=== PATIENT | male | born 2000 | race Caucasian/White ===

== ENCOUNTER 2024-12-25 18:16 | Emergency (ER) | payer OTHER, SELFPAY ==
--- NOTE | ~2024-12-25 | XR_ITS ---
EXAMINATION: XR chest 2V Exam Date/Time: 12/25/2024 18:40 CDT HISTORY: chest pain Comparison: None. RESULT: Lines, tubes, and devices: Small foci of radiopaque debris over the midline and left upper chest. Lungs and pleura: Clear. Cardiomediastinal silhouette: Normal. Other: No acute osseous or upper abdominal finding. IMPRESSION: No acute cardiopulmonary process. Reviewed, dictated and finalized at location K.
--- NOTE | 2024-12-25 18:18 | ECG_ITS ---
Test Date: 2024-12-25 18:26:01 Measurements Intervals [place] Rate: 79 P: 46 ND: 136 QRS: 78 QRSD: 92 T: 71 QT: 376 QTc: 433 Interpretive Statements SINUS RHYTHM MINIMAL Q WAVES- ANTEROLAT/INF LEADS BORDERLINE ECG No previous ECG available for comparison Electronically Signed On 12-25-2024 19:11:56 CDT by Shawn Cunningham D.O.
--- OUTSIDE RECORDS SUMMARY | 2024-12-25 18:18 | XMS_ITS | Clinical Summary ---
Author Organization [facility] Address [address] [place] [address] Care Team Providers Care Lumber Handler Name Role Phone Kathia Moreno MD Primary Care Provider + Allergies No known active allergies Medications No known medications Active Problems Problem Noted Date Diagnosed Date Pectus carinatum 09/26/2016 Tinea capitis 01/23/2012 Skin callus 01/23/2012 Social History Tobacco Use Types Packs/Day Years Used Date Smoking Tobacco: Never Personal Safety Answer Date Recorded Have you ever been in or are you currently in a harmful physical or emotional relationship or is someone making you feel afraid or unsafe? 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 Gender Identity Not on file Sexual Orientation Not on file Obstetrics History Last Filed Vital Signs Vital Sign Reading Time Taken Comments Blood Pressure 147/90 11/21/2023 6:51 PM SLAB WORKER Pulse 76 11/21/2023 6:51 PM SLAB WORKER Temperature 36.4 C (97.5 F) 11/21/2023 6:51 PM SLAB WORKER Respiratory Rate 16 11/21/2023 6:51 PM SLAB WORKER Oxygen Saturation 100% 11/21/2023 6:51 PM SLAB WORKER Inhaled Oxygen Concentration - - Weight 64.2 kg (141 lb 8.6 oz) 11/21/2023 6:51 P M SLAB WORKER Height 180.3 cm (5' 11 ) 11/21/2023 6:51 PM SLAB WORKER Body Mass Index 19.74 11/21/2023 6:51 PM SLAB WORKER Plan of Treatment Health Maintenance Due Date Last Done Comments Depression Screening 2002 Hepatitis C Screening 2002 Meningococcal B Vaccine (1 o f 2 - Standard) 2018 Regular Well Visit/Exam 18-64 2020 Influenza Vaccine (#1) 2024 5, 06/04/2014, 08/06/2003, Additional history exists DTaP/Tdap/Td Vaccine (8 - Td or Tdap) 11/27/2031 11/26/2021, 06/04/2014, 05/09/2007, Additional history exists Hepatitis B Screening Completed 06/10/2003 , 2002, 2002, Additional history exists Pneumococcal vaccine <65 Completed 003, 2002, 2002, Additional history exists Varicella Vaccines Completed 05/09/2007, 04/15/2004 HPV Vaccines Completed 05/09/2016, 09/2014, 06/04/2014 Insurance WORKERS COMPENSATION GENERIC COMPENSATION [facility] CHOICE PLUS Care Teams Lumber Handler Relationship Specialty Start Date End Date Kathia Moreno MD [address] [place] [address] PCP - General 01/23/17
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
--- OUTSIDE RECORDS SUMMARY | 2024-12-25 18:18 | XMS_ITS ---
Author Organization [facility] [employer] [facility] Address [address] [facility] [address] [place] [address] Care Team Providers Care Photographic Colorist Name Role Phone Carye Marquis Primary Care Provider Erica vailaBozena Green Unavailable [phone] REASON FOR VISIT Appointment Social History Sex Assigned At : Social History Observation Description Sex Assigned At Male Encounters Encounter Location Date Provider Diagnosis [facility] [employer] [facility] [address] [facility] [address] [place] [address] 12/10/2024 Bozena Willis Plan Of Treatment Next Appt Details Provider Name:Boznea caba, 03/06/2025 04:30:00 PM, [address], [facility] [address], [place], [address], Progress Notes * ANGELIKA BOWERDOB: (24 yo M)Acc No.[id number]:12/10/2024 Patient: ANGELIKA SANTIAGO :2000 A ge:24 Y S ex:Male Address:[facility] [place], [address] * true * Date: Generated for Noreen joel/Bessie/eTransmitting on: 0 12/25/2024 06:18 PM CDT
--- OUTSIDE RECORDS SUMMARY | 2024-12-25 18:18 | XMS_ITS | Referral Summary ---
Author Organization [facility] Address [address] [place] [address] Care Team Providers Care Industrial Ecologist Name Role Phone Kathia Moreno MD Primary [...] on file Legal Sex Male 4:15 AM [employer] Gender Identity Not on file Sexual Orientation Not on file Last Filed Vital Signs Vital Sign Reading Time Taken Comments Blood Pressure 147/90 11/21/2023 6:51 PM [employer] Pulse 76 11/21/2023 6:51 PM [employer] Temperature 36.4 C (97.5 F) 11/21/2023 6:51 PM [employer] Respiratory Rate 16 11/21/2023 6:51 PM [employer] Oxygen Saturation 100% 11/21/2023 6:51 PM [employer] Inhaled Oxygen Concentration - - Weight 64.2 kg (141 lb 8.6 oz) 11/21/2023 6:51 P M [employer] Height 180.3 cm (5' 11 ) 11/21/2023 6:51 PM [employer] Body Mass Index 19.74 11/21/2023 6:51 PM [employer] Plan of Treatment Not on file Insurance WORKERS COMPENSATION GENERIC COMPENSATION [facility] CHOICE [facility] H[facility]/PPO Address: [place] [address] Care Teams Industrial Ecologist Relationship Specialty Start Date End Date Kathia Moreno MD [address] [place] [address] PCP - General 01/23/17
--- OUTSIDE RECORDS SUMMARY | 2024-12-25 18:18 | XMS_ITS ---
Author Organization [facility] Address [address] [facility] [address] [facility] [address] [place] [address] Care Team Providers Care Boat Laborer Name Role Phone Carey Marquis Primary Care Provider Erica juan cmanavBozena Green Unavailable [phone] REASON FOR VISIT Refill request Medications Medication SIG (Take, Route, Frequency, Duration) Notes Start Date End Date Status Amphetamine-Dextroamphet ER 15 MG 1 capsule in the morning Oral Once a day for 30 days 12/08/2024 Active Social History Sex Assigned At : Social History Observation Description Sex Assigned At Male Encounters Encounter Location Date Provider Diagnosis [facility] [employer] [facility] [place] [id number] [facility] [address] [place] [address] 12/07/2024 Bozena Willis Attention-deficit hyperactivity disorder, combined type F90.2 Assessments Encounter Date Diagnosis (ICD Code) Assessment Notes Treatment Notes Treatment Clinical Notes Section Notes 12/07/2024 Attention-deficit hyperactivity disorder, combined type (ICD-10 - F90.2) Plan Of Treatment Medication Medication Name Sig Start Date Stop Date Notes Amphetamine-Dextroamphet ER 15 MG 1 capsule in the morning Oral Once a day for 30 days 12/08/2024 Next Appt Details Provider Name:Bozena caba, 03/06/2025 04:30:00 PM, [address], [place], [address], Progress Notes * ANGELIKA BOWERDOB: (24 yo M)Acc No.[id number]:12/07/2024 Patient: ANGELIKA SANTIAGO LYUDMILA :2000 A ge:24 Y S ex:Male Address:[address] [place] [address] * Refills Refill Amphetamine-Dextroamphet ER Capsule Extended Release 24 Hour, 15 MG, Oral, 30, 1 capsule in the morning, Once a day, 30 days, Refills=0 * true * Date: Generated for Noreen joel/Bessie/Preciousitting on: 0 12/25/2024 06:18 PM CDT
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
[2024-12-25 18:23] VITALS: BP 156/97; PULSE 80; RESP 14; TEMP 36.4; O2SAT 100
[2024-12-25 18:29] VITALS: O2SAT 100
[2024-12-25 18:30] VITALS: PULSE 89
[2024-12-25] MEDS: ASPIRIN 81 MG CHEWABLE TABLET 324 MG PO (18:31)
[2024-12-25 18:47] LABS: Basophils Percent Auto 0.7 % (0.2-1.2); Eosinophils Absolute Auto 0.1 K/mm3 (0-0.3); Eosinophils Percent Auto 2.1 % (0-4.4); Hematocrit 41.1 % (42.0-52.0); Hemoglobin 14.2 g/dL (14.0-18.0); Immature Granulocyte Absolute 0.01 K/mm3 (0.00-0.031); Immature Granulocyte Percent A 0.2 % (0-0.5); Lymphocytes Absolute Auto 2.81 K/mm3 (0.9-3.2); Lymphocytes Percent Auto 48.4 % (18.3-44.2); Mean Corpuscular HGB Conc 34.5 g/dl (32-36); Mean Corpuscular Hemoglobin 30.1 pg (26-34); Mean Corpuscular Volume 87.3 fl (80-100); Monocytes Absolute Auto 0.5 K/mm3 (0.1-0.6); Monocytes Percent Auto 9.3 % (2.6-8.5); Neutrophils Absolute Auto 2.3 K/mm3 (1.3-6.7); Neutrophils Percent Auto 39.3 % (45.5-73.1); Platelet Count Result 277 k/mm3 (150-375); Red Blood Count 4.71 M/mm3 (4.6-6.20); Red Cell Distribution Width 11.9 % (11.5-14.5); White Blood Count 5.8 K/mm3 (4.5-10.0)
[2024-12-25 18:58] LABS: Alanine Aminotransferase 14 U/L (6-50); Albumin Level 4.8 g/dL (3.5-5.1); Alkaline Phosphatase 46 U/L (38-126); Anion Gap 9 mmol/L (4-12); Aspartate Amino Transferase 27 U/L (17-59); Bilirubin,Total 0.8 mg/dL (0.2-1.3); Blood Urea Nitrogen 12 mg/dL (9-20); Calcium 9.3 mg/dL (8.4-10.2); Carbon Dioxide 30 mmol/L (22-30); Chloride 101 mmol/L (98-107); Estimated CRCL calculation 88 ml/min; Estimated Glomerular Filt Rate > 60; Glucose 99 mg/dL (65-110); Lipase 63 U/L (23-300); Potassium 3.9 mmol/L (3.4-5.0); Sodium 140 mmol/L (137-145)
[2024-12-25 18:59] LABS: Partial Thromboplastin Time 28.3 Seconds (22.3-36.8)
[2024-12-25 19:00] LABS: INR 1.1; Prothrombin Time 14.7 Seconds (11.1-14.7)
[2024-12-25 19:10] LABS: Troponin I < 0.012 ng/mL (0.000-0.034)
--- OUTSIDE RECORDS SUMMARY | 2024-12-25 19:19 | XMS_ITS | Clinical Summary ---
Author Organization [facility] Address [address] [place] [address] Care Team Providers Care Airline Ticket Agent Name Role Phone Caty Lam MD Primary Care Provider [phone] Source Comments [facility],non-owned Affiliates and Associated Physician Practices is amultiple site organization consisting of ambulatory clinics and hospital sitesin [place], [place], [place] and [place]. This disclosure is being madepursuant to the Care Everywhere program and may not contain all information available regarding this patient. Last updated 18.[employer] [facility] Allergies No known active allergies Medications * [...] age to complete this topic Care Teams Airline Ticket Agent Relationship Specialty Start Date End Date Caty Lam MD [address] [facility] [address] [place] [address] [facility] - General 12/09/21
--- OUTSIDE RECORDS SUMMARY | 2024-12-25 19:19 | XMS_ITS | Clinical Summary ---
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 Gender Identity Not on file Sexual Orientation Not on file Obstetrics History Last Filed Vital Signs Vital Sign Reading Time Taken Comments Blood Pressure 147/90 11/21/2023 6:51 PM PRESS SUPERVISOR Pulse 76 11/21/2023 6:51 PM PRESS SUPERVISOR Temperature 36.4 C (97.5 F) 11/21/2023 6:51 PM PRESS SUPERVISOR Respiratory Rate 16 11/21/2023 6:51 PM PRESS SUPERVISOR Oxygen Saturation 100% 11/21/2023 6:51 PM PRESS SUPERVISOR Inhaled Oxygen Concentration - - Weight 64.2 kg (141 lb 8.6 oz) 11/21/2023 6:51 P M PRESS SUPERVISOR Height 180.3 cm (5' 11 ) 11/21/2023 6:51 PM PRESS SUPERVISOR Body Mass Index 19.74 11/21/2023 6:51 PM PRESS SUPERVISOR Plan of Treatment Health Maintenance Due Date [...] 09/2014, 06/04/2014 Insurance WORKERS COMPENSATION GENERIC COMPENSATION [facility] CHOICE PLUS Care Teams Manufacturing Manager Relationship Specialty Start Date End Date Kathia Moreno MD [address] [place] [address] PCP - General 01/23/17
--- OUTSIDE RECORDS SUMMARY | 2024-12-25 19:19 | XMS_ITS | Referral Summary ---
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 Gender Identity Not on file Sexual Orientation Not on file Last Filed Vital Signs Vital Sign Reading Time Taken Comments Blood Pressure 147/90 11/21/2023 6:51 PM CHIEF GROWTH OFFICER Pulse 76 11/21/2023 6:51 PM CHIEF GROWTH OFFICER Temperature 36.4 C (97.5 F) 11/21/2023 6:51 PM CHIEF GROWTH OFFICER Respiratory Rate 16 11/21/2023 6:51 PM CHIEF GROWTH OFFICER Oxygen Saturation 100% 11/21/2023 6:51 PM CHIEF GROWTH OFFICER Inhaled Oxygen Concentration - - Weight 64.2 kg (141 lb 8.6 oz) 11/21/2023 6:51 P M CHIEF GROWTH OFFICER Height 180.3 cm (5' 11 ) 11/21/2023 6:51 PM CHIEF GROWTH OFFICER Body Mass Index 19.74 11/21/2023 6:51 PM CHIEF GROWTH OFFICER Plan of Treatment Not on file Insurance WORKERS COMPENSATION GENERIC COMPENSATION [facility] CHOICE PLUS Care Teams Mason Helper Relationship Specialty Start Date End Date Kathia Moreno MD [address] [place] [address] PCP - General 01/23/17
--- NOTE | 2024-12-25 19:51 | ED_ITS ---
HPI - Chest Pain General Chief Complaint: Chest Pain Stated Complaint: chest pain Time Seen by Provider: 12/25/24 19:00 History of Present Illness HPI narrative: Patient is a 24-year-old male presents to the ER with complaints of chest palpitations. He reports he was sleeping last night and the palpitations woke him up. Patient reports as he was lying in bed he had another episode of palpitations accompanied by shortness of breath. He denies chest pain but endorses ?tightness. Patient also endorses left shoulder and left neck pain. He reports he has had episodes of dizziness lately along with left lower chest cramping. Patient reports he takes Adderall for ADD and drinks approximately 2 energy drinks per day. He also endorses history of high blood pressure and depression. Related Data Allergies Allergy/AdvReac Type Severity Reaction Status Date / Time No Known Allergies Allergy Mild Verified 12/25/24 18:16 Review of Systems 2 Review of Systems: All systems reviewed & are unremarkable except as noted in HPI and below Exam 2 Narrative: GENERAL: Well appearing, well-nourished, non-toxic, in no acute distress. HEAD: Normocephalic, atraumatic. NECK: Supple. No adenopathy, no masses. RESPIRATORY: Airway patent, respirations nonlabored. Clear to auscultation bilaterally, no rales, rhonchi, wheezing. CARDIOVASCULAR: Regular rate and rhythm without murmurs, rubs, or gallops. Peripheral pulses 2+ and equal bilaterally. ABDOMINAL: Soft, nontender, nondistended, no hepatosplenomegaly. Normoactive BS. MUSCULOSKELETAL: Moves all extremities. Strength/ROM intact without gross deformities. SKIN: Warm, dry, normal color. No rashes. NEURO: A&O X3. Speech clear. Cranial nerves II-XII intact. No ataxic movements. PSYCHIATRIC: Appropriate mood and affect. Normal interaction. Course Vital Signs Vital signs: Vital Signs Temperature 36.4 C 12/25/24 18:23 Pulse Rate 80 12/25/24 18:23 Respiratory Rate 14 12/25/24 18:23 Blood Pressure 156/97 H 12/25/24 18:23 Pulse Oximetry 100 12/25/24 18:23 Oxygen Delivery Room Air 12/25/24 18:23 Temperature 36.4 C 12/25/24 18:23 Pulse Rate 90 12/25/24 20:11 Respiratory Rate 20 12/25/24 20:11 Blood Pressure 147/53 H 12/25/24 20:11 Pulse Oximetry 100 12/25/24 20:11 Oxygen Delivery Room Air 12/25/24 18:29 MDM - Chest Pain MDM Narrative Medical decision making narrative: Patient is a 24-year-old male presents to the ER with complaints of chest palpitations. He reports he was sleeping last night and the palpitations woke him up. Patient reports as he was lying in bed he had another episode of palpitations accompanied by shortness of breath. He denies chest pain but endorses ?tightness. Patient also endorses left shoulder and left neck pain. He reports he has had episodes of dizziness lately along with left lower chest cramping. Patient reports he takes Adderall for ADD and drinks approximately 2 energy drinks per day. He also endorses history of high blood pressure and depression. Labs Ordered: CBC, CMP, troponin, INR, lipase, PTT, TSH Imaging Ordered: Chest x-ray Medications Ordered: Aspirin 324 mg p.o. Results: Patient's chest x-ray indicates no acute abnormalities. Diagnosis: Atypical chest pain, chest palpitations Risks: HEART score: low risk HEART Score for Major Cardiac Events from [email or web address] on 12/25/2024 All calculations should be rechecked by clinician prior to use RESULT SUMMARY: 0 points Low Score (0-3 points) Risk of MACE of 0.9-1.7%. INPUTS: History ?> 0 = Slightly suspicious EKG ?> 0 = Normal Age ?> 0 = <45 Risk factors ?> 0 = No known risk factors Initial troponin ?> 0 = <=Normal limit Patient Education/Shared MDM: Results of lab work and imaging shared with patient. Patient strongly advised to maintain hydration status upon discharge, decrease his caffeine intake, and follow-up with his PCP as soon as possible. He will not be discharged home with any new prescriptions. Strict return precautions provided. Patient verbalized understanding is in agreement with plan. Vital signs stable at time of discharge. All questions answered. Differential Diagnosis Differential diagnosis: Likely atypical chest pain, st elevation myocardial infarction, costochondritis and chest pain Lab Data Attestation: I reviewed the patient's lab results. 12/25/24 18:38 12/25/24 18:38 Labs: Lab Results 12/25/24 12/25/24 Range/Units 18:38 21:06 WBC 5.8 (4.5-10.0) K/mm3 RBC 4.71 (4.6-6.20) M/mm3 Hgb 14.2 (14.0-18.0) g/dL Hct 41.1 L (42.0-52.0) % MCV 87.3 (80-100) fl MCH 30.1 (26-34) pg MCHC 34.5 (32-36) g/dl RDW 11.9 (11.5-14.5) % Plt Count 277 (150-375) k/mm3 MPV 9.0 (7.4-10.4) fl Immature Gran % (Auto) 0.2 (0-0.5) % Neut % (Auto) 39.3 L (45.5-73.1) % Lymph % (Auto) 48.4 H (18.3-44.2) % Independence % (Auto) 9.3 H (2.6-8.5) % Eos % (Auto) 2.1 (0-4.4) % Baso % (Auto) 0.7 (0.2-1.2) % Lymph # (Auto) 2.81 (0.9-3.2) K/mm3 Independence # (Auto) 0.5 (0.1-0.6) K/mm3 Eos # (Auto) 0.1 (0-0.3) K/mm3 Baso # (Auto) 0.0 (0.0-0.1) K/mm3 Abs Immat Gran (auto) 0.01 (0.00-0.031) K/mm3 Absolute Neuts (auto) 2.3 (1.3-6.7) K/mm3 Absolute Nucleated RBC 0.000 (0.0-0.012) K/mm3 Nucleated RBC % 0.0 (0.0-0.2) % PT 14.7 (11.1-14.7) Seconds INR 1.1 APTT 28.3 (22.3-36.8) Seconds Sodium 140 (137-145) mmol/L Potassium 3.9 (3.4-5.0) mmol/L Chloride 101 (98-107) mmol/L Carbon Dioxide 30 (22-30) mmol/L Anion Gap 9 (4-12) mmol/L BUN 12 (9-20) mg/dL Creatinine 1.03 (0.7-1.3) mg/dL Estim Creat Clear Calc 88 ml/min Estimated GFR > 60 (59 - ) Glucose 99 (65-110) mg/dL Calcium 9.3 (8.4-10.2) mg/dL Total Bilirubin 0.8 (0.2-1.3) mg/dL AST 27 (17-59) U/L ALT 14 (6-50) U/L Alkaline Phosphatase 46 (38-126) U/L Troponin I < 0.012 Pending (0.000-0.034) ng/mL Total Protein 8.0 (6.3-8.2) g/dL Albumin 4.8 (3.5-5.1) g/dL Lipase 63 (23-300) U/L TSH (Reflex) 1.460 (0.465-4.68) uIU/mL Imaging Data Attestation: I personally reviewed and interpreted this imaging study as follows: Radiologist's impression: Impressions Chest X-Ray 12/25/24 18:47 IMPRESSION: No acute cardiopulmonary process. Discharge Plan Discharge Clinical Impression: Atypical chest pain, Caffeine abuse Patient Disposition: Home, Self-Care Condition: Stable Instructions: Antibiotic Form, Noncardiac Chest Pain (ED) Additional Instructions: Please return to the ER with any worsening symptoms. Follow-up with primary care provider as soon as possible. Please decrease caffeine intake. Patient Language: Congolese Follow-up/Referrals: Erickson Cesar MD [Physician] - (cardiology) Dionisio Sevilla MD [Physician] - (primary care) UNKNOWN,DOCTOR [Primary Care Provider] - Stand Alone Forms: Work/School Release IP Time of Disposition: 21:01
[2024-12-25 20:11] VITALS: BP 147/53; PULSE 90; RESP 20; O2SAT 100
[2024-12-25 21:43] VITALS: BP 141/85; PULSE 85; RESP 17; O2SAT 100
[2024-12-25 21:46] LABS: Troponin I < 0.012 ng/mL (0.000-0.034)
== END 2024-12-25 21:44 | disposition home or self-care (01) ==
PROVIDERS: Emergency Medicine; Emergency Provider Registered Nurse
DX: R07.89 Other chest pain (principal); F15.10 Other stimulant abuse, uncomplicated
CPT/HCPCS: 36415; 71046; 80053; 83690; 84443; 84484; 85025; 85610; 85730; 93005; 99284; A9270

== ENCOUNTER 2025-05-08 23:09 | Emergency (ER) | payer OTHER, SELFPAY ==
--- NOTE | ~2025-05-08 | CT_ITS ---
EXAMINATION: CT abdomen pelvis wo con DATE: 05/09/2025 02:23 INDICATION: Right lower quadrant abdominal pain extending to the testes TECHNIQUE: Computed tomography (CT) of the abdomen and pelvis was performed without intravenous contr ast. Automated exposure control and iterative reconstruction technique were employed. The dose-length product was 202.78 mGy-cm. COMPARISON: None FINDINGS: Lung bases are clear. Heart size is normal. No pericardial or pleural effusion. Liver, gallbladder, s pleen, pancreas, bilateral adrenal glands and kidneys are normal. No urolithiasis or hydronephrosis. There are couple phleboliths in the left hemipelvis. Bladder is normal. Bowels including the appendix are normal with no abnormal wall thickening or obstruction. No free intraperitoneal gas or fluid. No pathologically enlarged abdominal or pelvic lymphadenopathy. Bones are unremarkable. IMPRESSION: 1. No acute intra-abdominal/pelvic process. Reviewed, dictated and finalized at location A.
--- NOTE | ~2025-05-08 | US_ITS ---
EXAMINATION: US scrotum doppler DATE: 05/09/2025 00:58 INDICATION: Right testicular pain TECHNIQUE: Testicular sonogram utilizing grayscale and Doppler COMPARISON: None. FINDINGS: The right testis measures 4.8 x 1.8 x 2.7 cm. The left testis measures 4.9 x 2.2 x 2.9 cm. Symmetric normal grayscale appearance to both testes. There is normal vascular flow to both testes. The right e pididymis is normal with normal vascular flow. The left epididymis is normal with normal vascular tigre w. There is no varicocele or hydrocele. IMPRESSION: 1. Normal scrotal ultrasound. Reviewed, dictated and finalized at location A.
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
--- OUTSIDE RECORDS SUMMARY | 2025-05-08 23:11 | XMS_ITS | Clinical Summary ---
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 Gender Identity Not on file Sexual Orientation Not on file Obstetrics History Last Filed Vital Signs Vital Sign Reading Time Taken Comments Blood Pressure 147/90 11/21/2023 6:51 PM CLINICAL NURSE MANAGER Pulse 76 11/21/2023 6:51 PM CLINICAL NURSE MANAGER Temperature 36.4 C (97.5 F) 11/21/2023 6:51 PM CLINICAL NURSE MANAGER Respiratory Rate 16 11/21/2023 6:51 PM CLINICAL NURSE MANAGER Oxygen Saturation 100% 11/21/2023 6:51 PM CLINICAL NURSE MANAGER Inhaled Oxygen Concentration - - Weight 64.2 kg (141 lb 8.6 oz) 11/21/2023 6:51 P M CLINICAL NURSE MANAGER Height 180.3 cm (5' 11) 11/21/2023 6:51 PM CLINICAL NURSE MANAGER Body Mass Index 19.74 11/21/2023 6:51 PM CLINICAL NURSE MANAGER Plan of Treatment Health Maintenance Due Date Last Done Comments Depression Screening 2002 Hepatitis C Screening 2002 Meningococcal B Vaccine (1 o f 2 - Standard) 2018 Regular Well Visit/Exam 18-64 2020 Influenza Vaccine (#1) 2025 5, 06/04/2014, 08/06/2003, Additional history exists DTaP/Tdap/Td Vaccine (8 - Td or Tdap) 11/27/2031 11/26/2021, 06/04/2014, 05/09/2007, Additional history exists Hepatitis B Screening Completed 06/10/2003 , 2002, 2002, Additional history exists Pneumococcal vaccine <65 Completed 003, 2002, 2002, Additional history exists Varicella Vaccines Completed 05/09/2007, 04/15/2004 HPV Vaccines Completed 05/09/2016, 09/2014, 06/04/2014 Insurance WORKERS COMPENSATION GENERIC COMPENSATION [facility] CHOICE PLUS [facility] HMO/PPO Address: [facility] [address] [place] [address] Care Teams Insurance Account Manager Relationship Specialty Start Date End Date Kathia Moreno MD [address] [place] [address] PCP - General 01/23/17
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
[2025-05-08 23:14] VITALS: BP 141/97; PULSE 88; RESP 17; TEMP 36.9; O2SAT 98
--- NOTE | 2025-05-08 23:18 | ED.MALEGU ---
HPI - Male Genitourinary General Chief complaint: Urogenital-Male Stated complaint: testicular pain Time Seen by Provider: 05/08/25 23:11 History of Present Illness HPI Narrative: 24-year-old otherwise healthy male presenting with intermittent right side testicular pain for last 2 days. He states that it was a dull 3 of 10 ache for last 2 days and then for last 3 hours he had a sharp worsening pain. No associated symptoms such as nausea, vomiting, diarrhea, constipation. Pain radiates up his right groin. No back pain or flank pain. No change in his urinary or stool habits. No blood in his urine or stool. No concerns for STI. No swelling. No changes position. He has not had any history of surgeries or interventions in this area. Was otherwise in his normal state of health. No direct trauma or injury. Related Data Allergies Allergy/AdvReac Type Severity Reaction Status Date / Time No Known Allergies Allergy Mild Verified 05/08/25 23:19 Review of Systems Review of Systems: As reviewed above in HPI Exam Narrative: GENERAL: [Well-appearing, well-nourished, and in no acute distress.] HEAD: [Normocephalic, atraumatic.] EYES: [PERRLA and EOMI.] ENT: Nares clear, no rhinorrhea or epistaxis. Mucous membranes moist. NECK: Supple. CHEST: [Clear to auscultation. No respiratory distress.] HEART: [Regular rate and rhythm]. No murmur heard. [Normal peripheral pulses.] ABDOMEN: [Soft, nondistended], [nontender], [No rigidity or guarding] : Bilateral descended testicles, tenderness along the right testicular and epididymis without any inflammation on the external examination. Negative per and sign, positive cremasteric reflex bilaterally, no significant swelling. No penile pain or discharge. No inguinal lymphadenopathy noted. EXTREMITIES: Normal range of motion. [No edema.] SKIN: Warm, dry, no rash. NEURO: [No focal deficits]. Alert and oriented [x3.] PSYCH: [Normal mood and affect.] Course Vital Signs Vital signs: Vital Signs Temperature 36.9 C 05/08/25 23:14 Pulse Rate 88 05/08/25 23:14 Respiratory Rate 17 05/08/25 23:14 Blood Pressure 141/97 H 05/08/25 23:14 Pulse Oximetry 98 05/08/25 23:14 Oxygen Delivery Room Air 05/08/25 23:14 Temperature 36.9 C 05/08/25 23:14 Pulse Rate 80 05/09/25 02:09 Respiratory Rate 14 05/09/25 02:09 Blood Pressure 139/78 05/09/25 02:09 Pulse Oximetry 96 05/09/25 02:09 Oxygen Delivery Room Air 05/08/25 23:14 MDM - Male Genitourinary MDM Narrative Medical decision making narrative: 24-year-old otherwise healthy male presenting with intermittent right side testicular pain for last 2 days. He states that it was a dull 3 of 10 ache for last 2 days and then for last 3 hours he had a sharp worsening pain. No associated symptoms such as nausea, vomiting, diarrhea, constipation. Pain radiates up his right groin. No back pain or flank pain. No change in his urinary or stool habits. No blood in his urine or stool. No concerns for STI. No swelling. No changes position. He has not had any history of surgeries or interventions in this area. Was otherwise in his normal state of health. No direct trauma or injury. Exam shows bilateral descended testicles, tenderness along the right testicular and epididymis without any inflammation on the external examination. Negative per and sign, positive cremasteric reflex bilaterally, no significant swelling. No penile pain or discharge. No inguinal lymphadenopathy noted. Patient is hemodynamically stable. Symptoms consistent with potential intermittent torsion, epididymitis, orchitis, urinary tract infection, STD. Patient was given Toradol for analgesia, laboratory studies obtained an ultrasound of the scrotum obtained. Laboratory studies are all reassuring and negative for any acute abnormalities or infectious process. Ultrasound report by technologist shows some trace fluid otherwise no acute findings. Confirmed by radiology with no acute testicular findings and largely unremarkable ultrasound of the scrotum. CT scan was ordered this time given patient's pain value 8 for the potential sources such as right lower quadrant symptoms such as appendicitis. This was negative with normal appendix and no signs of inguinal hernia. No acute intra-abdominal or pelvic findings. We discussed the findings with the patient and plan for Urology follow-up if this is a persisting concern instructed to take ibuprofen 600 mg q.8 hours as needed. Patient comfortable the plan safe for discharge at this time with return precautions. Medical Records Attestation: I reviewed the patient's medical records. Lab Data Attestation: I reviewed the patient's lab results. 05/08/25 23:28 05/08/25 23:28 Labs: Lab Results 05/08/25 05/08/25 Range/Units 23:28 23:33 WBC 7.7 (4.5-10.0) K/mm3 RBC 4.59 L (4.6-6.20) M/mm3 Hgb 13.9 L (14.0-18.0) g/dL Hct 39.4 L (42.0-52.0) % MCV 85.8 (80-100) fl MCH 30.3 (26-34) pg MCHC 35.3 (32-36) g/dl RDW 12.3 (11.5-14.5) % Plt Count 253 (150-375) k/mm3 MPV 9.2 (7.4-10.4) fl Immature Gran % (Auto) 0.1 (0-0.5) % Neut % (Auto) 43.4 L (45.5-73.1) % Lymph % (Auto) 45.6 H (18.3-44.2) % Victoria % (Auto) 8.2 (2.6-8.5) % Eos % (Auto) 2.2 (0-4.4) % Baso % (Auto) 0.5 (0.2-1.2) % Lymph # (Auto) 3.50 H (0.9-3.2) K/mm3 Victoria # (Auto) 0.6 (0.1-0.6) K/mm3 Eos # (Auto) 0.2 (0-0.3) K/mm3 Baso # (Auto) 0.0 (0.0-0.1) K/mm3 Abs Immat Gran (auto) 0.01 (0.00-0.031) K/mm3 Absolute Neuts (auto) 3.3 (1.3-6.7) K/mm3 Absolute Nucleated RBC 0.000 (0.0-0.012) K/mm3 Nucleated RBC % 0.0 (0.0-0.2) % PT 14.4 (11.1-14.7) Seconds INR 1.1 APTT 28.9 (22.3-36.8) Seconds Sodium 139 (137-145) mmol/L Potassium 4.0 (3.4-5.0) mmol/L Chloride 104 (98-107) mmol/L Carbon Dioxide 24 (22-30) mmol/L Anion Gap 11 (4-12) mmol/L BUN 17 (9-20) mg/dL Creatinine 1.11 (0.7-1.3) mg/dL Estim Creat Clear Calc Not Reportable Estimated GFR > 60 (59 - ) Glucose 78 (65-110) mg/dL Calcium 9.3 (8.4-10.2) mg/dL Urine Color Yellow (Yellow) Urine Appearance Clear (Clear) Urine pH 6.0 (5.0-9.0) Ur Specific Marion 1.026 (1.001-1.035) Urine Protein Negative (Negative) mg/dL Urine Glucose (UA) Negative (Negative) mg/dL Urine Ketones Trace H (Negative) mg/dL Ur Blood (Man) Negative (Negative) Urine Nitrate Negative (Negative) Urine Bilirubin Negative (Negative) Urine Urobilinogen 1.0 (<2.0) mg/dL Leukocyte Esterase Rfl Negative (Negative) SVETLANA/UL C. trachomatis (PCR) Not detected (NOT DETECTE) N. gonorrhoeae (PCR) Not detected (NOT DETECTE) T. vaginalis (PCR) Not detected (NOT DETECTE) Imaging Data Attestation: I personally reviewed and interpreted this imaging study as follows: My impression: No acute abnormalities, trace hydro seen on right testicle per technologist's report Discharge Plan Discharge Clinical Impression: Hydrocele in adult Patient Disposition: Home Condition: Stable Instructions: Antibiotic Form, Testicle Pain (ED) Additional Instructions: Trace fluid seen around the right testicle but no signs of active infection. Your laboratory studies are all normal reassuring. CT scan was normal reassuring. Will refer you to a urologist to further evaluate you of this a persisting concern. Take the prescribed ibuprofen 600 mg every 8 hours for symptom control appear to be start developing fevers, worsening pain or new symptoms please return to the ER or your primary care provider/urology follow-up. Patient Language: Mongolian Prescriptions: New ibuprofen 600 mg tablet 600 mg PO TID PRN (Reason: pain) Qty: 20 0RF Follow-up/Referrals: Alexis Mason MD [Physician] - 1 Week (Right-sided testicular pain) UNKNOWN,DOCTOR [Primary Care Provider] - Time of Disposition: 04:56
[2025-05-08] MEDS: KETOROLAC 15 MG/ML VIAL (*BKC) IV PUSH (23:26)
[2025-05-08 23:35] VITALS: BP 133/86; PULSE 82; RESP 20; O2SAT 97
[2025-05-08 23:43] LABS: Add Urine Microscopic? NO; Appearance Urine Clear (Clear); Glucose Urine UA Negative (Negative); Leukocyte Esterase Ur Negative LEU/UL (Negative); Nitrate Urine Negative (Negative); Specific Grav Ur 1.026 (1.001-1.035)
[2025-05-08 23:43] LABS: Hematocrit 39.4 % (42.0-52.0); Hemoglobin 13.9 g/dL (14.0-18.0); Immature Granulocyte Percent A 0.1 % (0-0.5); Lymphocytes Absolute Auto 3.50 K/mm3 (0.9-3.2); Mean Corpuscular HGB Conc 35.3 g/dl (32-36); Mean Corpuscular Hemoglobin 30.3 pg (26-34); Mean Corpuscular Volume 85.8 fl (80-100); Nucleated Red Blood Cells Absolute Auto 0.000 K/mm3 (0.0-0.012); Nucleated Red Blood Cells Perc 0.0 % (0.0-0.2); Platelet Count Result 253 k/mm3 (150-375); Red Blood Count 4.59 M/mm3 (4.6-6.20); White Blood Count 7.7 K/mm3 (4.5-10.0)
[2025-05-08 23:50] LABS: Anion Gap 11 mmol/L (4-12); Blood Urea Nitrogen 17 mg/dL (9-20); Calcium 9.3 mg/dL (8.4-10.2); Carbon Dioxide 24 mmol/L (22-30); Chloride 104 mmol/L (98-107); Estimated Glomerular Filt Rate > 60; Glucose 78 mg/dL (65-110); Potassium 4.0 mmol/L (3.4-5.0); Sodium 139 mmol/L (137-145)
[2025-05-08 23:52] LABS: INR 1.1; Partial Thromboplastin Time 28.9 Seconds (22.3-36.8); Prothrombin Time 14.4 Seconds (11.1-14.7)
--- OUTSIDE RECORDS SUMMARY | 2025-05-08 23:56 | XMS_ITS | Clinical Summary ---
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 Gender Identity Not on file Sexual Orientation Not on file Obstetrics History Last Filed Vital Signs Vital Sign Reading Time Taken Comments Blood Pressure 147/90 11/21/2023 6:51 PM BOOM STICK WORKER Pulse 76 11/21/2023 6:51 PM BOOM STICK WORKER Temperature 36.4 C (97.5 F) 11/21/2023 6:51 PM BOOM STICK WORKER Respiratory Rate 16 11/21/2023 6:51 PM BOOM STICK WORKER Oxygen Saturation 100% 11/21/2023 6:51 PM BOOM STICK WORKER Inhaled Oxygen Concentration - - Weight 64.2 kg (141 lb 8.6 oz) 11/21/2023 6:51 P M BOOM STICK WORKER Height 180.3 cm (5' 11) 11/21/2023 6:51 PM BOOM STICK WORKER Body Mass Index 19.74 11/21/2023 6:51 PM BOOM STICK WORKER Plan of Treatment Health Maintenance Due [...] 09/2014, 06/04/2014 Insurance WORKERS COMPENSATION GENERIC COMPENSATION [facility] CHOICE PLUS Care Teams Pile Driving Technician Relationship Specialty Start Date End Date Kathia Moreno MD [address] [place] [address] PCP - General 01/23/17
--- OUTSIDE RECORDS SUMMARY | 2025-05-08 23:56 | XMS_ITS | Clinical Summary ---
Author Organization [facility] [employer] Address [address] [place] [address] Care Team Providers Care Fagot Maker Name Role Phone Caty Lam MD Primary Care Provider [phone] Source Comments [facility] [employer],non-owned Affiliates and Associated Physician Practices is amultiple site organization consisting of ambulatory clinics and hospital sitesin [place], [place], [place] and [place]. This disclosure is being madepursuant to the Care Everywhere program and may not contain all information available regarding this patient. 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 [place] [address] PCP - General 12/09/21
[2025-05-09 00:58] LABS: Trichomonas Vag PCR NOT DETECTED (NOT DETECTE)
[2025-05-09] MEDS: HYDROmorphone HCL INJ (*CRX) 1 MG/ML SYR 0.5 MG IV PUSH (01:02)
[2025-05-09 02:09] VITALS: BP 139/78; PULSE 80; RESP 14; O2SAT 96
[2025-05-09 05:10] VITALS: BP 130/80; PULSE 86; RESP 17; O2SAT 97
== END 2025-05-09 05:15 | disposition home or self-care (01) ==
PROVIDERS: Emergency Provider Student in an Organized Health Care Education/Training Program
DX: N43.3 Hydrocele, unspecified (principal)
CPT/HCPCS: 36415; 74176; 76870; 80048; 81003; 85025; 85610; 85730; 87491; 87591; 87661; 93976; 96374; 96375; 99284; J1171; J1885